=== PATIENT | female | born 1960 | race Caucasian/White ===

== ENCOUNTER 2016-12-14 08:49 | Inpatient (IN) | payer BC, OTHER ==
[~2016-12-14] VITALS: Ht 167.6 cm; Wt 93.2 kg
[~2016-12-14 08:49] MED LIST: ALBU6.7H PO; AZEL23SP NS; BACITRACIN 50,000 UNIT ONE; BECL8.7A6 INH; BUPIVACAINE/PF 0.5% ONE; CETI10CA PO; CHOL10002 PO; EPINEPHRINE 1 MG/ML, 1ML ONE; IBUP200T64 PO; MV,C400T2 PO; THROMBIN 20,000 UNIT VIAL TP ONE; ZOLP-413 PO
[2016-12-14] MEDS ORDERED: LACTATED RINGERS 1,000 ML IV SCH (09:21)
[2016-12-14 09:46] VITALS: BP 133/82
[2016-12-14] MEDS ORDERED: MIDAZOLAM 1 MG/ML, 2ML ONE (11:25)
[2016-12-14] MEDS ORDERED: FENTANYL PF 100 MCG/2ML ONE ×3 (11:26)
[2016-12-14] MEDS ORDERED: ONDANSETRON 2MG/ML, 2ML ONE (12:24)
[2016-12-14] MEDS ORDERED: ROCURONIUM 10 MG/ML ONE (12:24)
[2016-12-14] MEDS ORDERED: DEXAMETHASONE 4 MG/ML, 1ML ONE (12:24)
[2016-12-14] MEDS ORDERED: CEFAZOLIN 1,000 MG ONE (12:24)
[2016-12-14] MEDS ORDERED: SUCCINYLCHOLINE 20 MG/ML, 10ML ONE (12:24)
[2016-12-14] MEDS ORDERED: PROPOFOL 10 MG/ML, 20ML ONE (12:24)
[2016-12-14] MEDS ORDERED: ACETAMINOPHEN 325 MG TABLET PO PRN (12:30)
[2016-12-14] MEDS ORDERED: FENTANYL PF 100 MCG/2ML IV PRN (12:30)
[2016-12-14] MEDS ORDERED: OXYcodone 5 MG/5 ML ORAL.SOL UDC PO PRN (12:30)
[2016-12-14] MEDS ORDERED: HYDROmorphone 1 MG/ML, 1ML IV PRN (12:30)
[2016-12-14] MEDS ORDERED: PROMETHAZINE 25 MG/ML, 1ML IV PRN (12:30)
[2016-12-14] MEDS ORDERED: ONDANSETRON 2MG/ML, 2ML IVPush PRN (12:30)
[2016-12-14] MEDS ORDERED: LABETALOL 5MG/ML, 20ML IV PRN (12:30)
[2016-12-14] MEDS ORDERED: MEPERIDINE/PF 25MG/0.5ML IVPush PRN (12:30)
[2016-12-14] MEDS ORDERED: hydrALAzine 20 MG/ML, 1ML IV PRN (12:30)
[2016-12-14] MEDS ORDERED: ALBUTEROL SULFATE 2.5 MG/3 ML NPPB PRN (12:30)
[2016-12-14] MEDS ORDERED: BUPIVACAINE/PF 0.25% ONE (13:03)
[2016-12-14] MEDS ORDERED: EPINEPHRINE 1 MG/ML, 1ML ONE (13:04)
[2016-12-14] MEDS ORDERED: ACETAMINOPHEN 650 MG/20.3 ML UDC ONE (15:11)
[2016-12-14] MEDS ORDERED: OXYcodone 5 MG/5 ML ORAL.SOL UDC ONE (15:11)
[2016-12-14] MEDS ORDERED: HYDROmorphone 1 MG/ML, 1ML ONE (15:11)
[2016-12-14] MEDS ORDERED: MEPERIDINE/PF 25MG/0.5ML ONE (15:22)
[2016-12-14] MEDS ORDERED: HYDROmorphone PCA 30 MG/30 ML ONE (15:37)
[2016-12-14] MEDS ORDERED: HYDROmorphone PCA 30 MG/30 ML IV PRN (16:00)
[2016-12-14] MEDS ORDERED: METHOCARBAMOL 1,000 MG in DEXTROSE 5% 100 ML IV ONE (17:00)
[2016-12-14] MEDS ORDERED: DIPHENHYDRAMINE 50 MG/ML, 1ML IM PRN (17:00)
[2016-12-14] MEDS ORDERED: HYDROcodone/APAP 10/325 MG TABLET PO PRN (17:00)
[2016-12-14] MEDS ORDERED: HYDROmorphone 2MG TABLET PO PRN (17:00)
[2016-12-14] MEDS ORDERED: MAGNESIUM HYDROXIDE 8%, 30ML UDC PO PRN (17:00)
[2016-12-14] MEDS ORDERED: PROMETHAZINE 25 MG/ML, 1ML IM PRN (17:00)
[2016-12-14] MEDS ORDERED: DIPHENHYDRAMINE 50 MG CAPSULE PO PRN (17:00)
[2016-12-14] MEDS ORDERED: BISACODYL 10 MG SUPP PR PRN (17:00)
[2016-12-14] MEDS ORDERED: ONDANSETRON 2MG/ML, 2ML IV PRN (17:00)
[2016-12-14] MEDS ORDERED: NS + 20MEQ KCL 1,000 ML IV SCH (17:00)
[2016-12-14] MEDS ORDERED: HYDROmorphone 2 MG/ML, 1ML IM PRN (17:00)
[2016-12-14] MEDS ORDERED: DIPHENHYDRAMINE 50 MG/ML, 1ML IVPush PRN (17:00)
[2016-12-14] MEDS ORDERED: CYCLOBENZAPRINE 10 MG TABLET PO PRN (18:00)
[2016-12-14 19:37] VITALS: BP 123/80
[2016-12-14] MEDS: CEFAZOLIN PMX 2GM/50ML 50 ML IVPB SCH (20:47)
[2016-12-14] MEDS ORDERED: ZOLPIDEM 5MG TABLET PO PRN (21:00)
[2016-12-14 23:11] VITALS: BP 126/71
[2016-12-15] MEDS: METHOCARBAMOL 750 MG TABLET PO SCH ×2 (01:21→08:59)
[2016-12-15 03:08] VITALS: BP 116/68
[2016-12-15] MEDS: CEFAZOLIN PMX 2GM/50ML 50 ML IVPB SCH ×2 (04:32→12:40)
[2016-12-15 08:20] VITALS: BP 123/72
[2016-12-15] MEDS ORDERED: SENNA/DOCUSATE TABLET PO SCH (09:00)
[2016-12-15 12:15] VITALS: BP 136/90
[2016-12-15 13:00] VITALS: BP 114/66
[2016-12-15] MEDS ORDERED: OXYC-307 PO (13:46)
[2016-12-15] MEDS ORDERED: CYCL-259 PO (13:46)
[2016-12-15] MEDS ORDERED: DOCU-131 PO (13:47)
== END 2016-12-15 14:03 | disposition home or self-care (01) | DRG 460 ==
LOC: ORIP 08:49 → 4NOR 16:30 → DCLOUNGE 12-15 13:40
PROVIDERS: ADMIT Neurological Surgery; ATTEND Neurological Surgery
PROC: 01NB0ZZ Release Lumbar Nerve, Open Approach (ICD-10-PCS; 2016-12-14)
PROC: 0SG00A1 (ICD-10-PCS; principal; 2016-12-14 11:30)
DX: M48.06 Spinal stenosis, lumbar region (principal); M43.16 Spondylolisthesis, lumbar region
CPT/HCPCS: 72100; C1713; J0171; J0690; J1100; J1170; J2175; J2250; J2405; J2704; J3010; J3480; J3490; C1762; J0330; J2800; J7120